=== PATIENT | female | born 1985 | race American Indian/Alaskan Native ===

== ENCOUNTER 2016-06-25 08:13 | Emergency (ER) | payer OTHER, BC ==
[2016-06-25 08:13] VITALS: BMI 34.3
[2016-06-25 08:21] VITALS: RESP 16; O2SAT 100
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
[2016-06-25 09:46] VITALS: BP 118/78; PULSE 78; TEMP 98.1
--- NOTE | 2016-06-25 11:44 | RAD ---
PROCEDURE: Radiographs of the left elbow. HISTORY: elbow pain and injury r/o fx COMPARISON: No prior. FINDINGS: BONES: Normal. No fracture. JOINTS: Normal. No osteoarthritis. SOFT TISSUES: Normal. JOINT EFFUSION: None. OTHER FINDINGS: None IMPRESSION: No acute findings related to/accounting for the clinical presentation. Concordant results with the preliminary interpretation rendered by the emergency department physician procedure.
== END 2016-06-25 09:51 | disposition home or self-care (01) ==
LOC: C.ER 08:13
DX: S50.02XA Contusion of left elbow, initial encounter (principal); V43.52XA Car driver injured in collision with other type car in traffic accident, initial encounter; Y92.410 Unspecified street and highway as the place of occurrence of the external cause